=== PATIENT | female | born 1970 | race Caucasian/White ===

== ENCOUNTER 2021-07-28 11:29 | Observation (INO) ==
[2021-07-28] MEDS ORDERED: Ondansetron 4 MG/2 ML VIAL IVP PRN (11:35)
[2021-07-28 12:20] LABS: Basophils # 0.1 K/mcL (0.0-0.2); Basophils % 0.5 %; Eosinophils # 0.2 K/mcL (0.0-0.6); Eosinophils % 1.7 %; Hematocrit 42.7 % (35.3-44.9); Hemoglobin 14.4 g/dL (11.5-15.4); Immature Granulocytes % 0.3 % (0-4); Lymphocytes # 3.2 K/mcL (0.6-4.6); Lymphocytes % 27.5 %; Mean Corpuscular HGB Conc 33.7 g/dL (31.6-35.5); Mean Corpuscular Hemoglobin 30.2 pg (28.0-33.3); Mean Corpuscular Volume 89.5 fL (83.0-100.0); Mean Platelet Volume 10.5 fL (9.4-12.4); Monocytes # 0.6 K/mcL (0.0-1.3); Monocytes % 5.1 %; Neutrophils # 7.5 K/mcL (1.6-8.9); Platelet Count 191 K/mcL (140-400); Red Blood Count 4.77 M/mcL (3.82-4.97); Red Cell Distribution Width 13.9 % (11.5-14.5); Segmented Neutrophils % 64.9 %; White Blood Count 11.5 K/mcL (4.3-11.1)
[2021-07-28 12:45] LABS: Bilirubin,Indirect 0.5 mg/dL (0.0-1.0); Bilirubin,Total 0.5 mg/dL (0.3-1.0)
[2021-07-28 12:46] LABS: Alanine Aminotransferase 19 Units/L (7-52); Albumin/Globulin Ratio 1.7 (1.1-2.2); Alkaline Phosphatase 87 Units/L (34-104); Amylase 27 Units/L (29-103); Aspartate Amino Transferase 14 Units/L (13-39); BUN/Creatinine Ratio 8 (6-26); Bilirubin,Indirect 0.5 mg/dL (0.0-1.0); Bilirubin,Total 0.5 mg/dL (0.3-1.0); Blood Urea Nitrogen 6 mg/dL (6-20); Calcium 9.1 mg/dL (8.6-10.3); Carbon Dioxide 29 mEq/L (23-29); Chloride 105 mEq/L (98-107); Globulin 2.4 g/dL (2.4-3.5); Glucose 85 mg/dL (70-105); Osmolality,Calculated 285 (280-300); Potassium 3.6 mEq/L (3.5-5.1); Sodium 139 mEq/L (136-145); Total Protein 6.4 g/dL (6.4-8.9); eGFR For African Americans > 60 (> 60); eGFR For Non-African Americans > 60 (> 60)
[2021-07-28] MEDS: Ringers Solution, Lactated 1,000 ML IVC SCH ×2 (13:37→22:42)
[2021-07-28] MEDS: Pantoprazole 40 MG VIAL IVP SCH (13:37)
[2021-07-28] MEDS: cefOXitin 2,000 MG in 0.9 % Sodium Chloride 20 ML IVP SCH ×2 (13:38→22:44)
[2021-07-28] MEDS: Acetaminophen IV 1,000 MG/100 ML BAG IVPB SCH ×2 (13:48→20:15)
[2021-07-28] MEDS ORDERED: Lidocaine HCL 4 ML Topical Solution (Laryng-O-Jet Kit Sterile Pak) TP ONE (16:30)
[2021-07-28] MEDS ORDERED: Ondansetron 4 MG/2 ML VIAL ONE ×2 (16:30→17:34)
[2021-07-28] MEDS ORDERED: Lidocaine -MPF 2% 2 ML VIAL ONE (16:30)
[2021-07-28] MEDS ORDERED: *HR* Succinylcholine 200 MG/10 ML VIAL IVP ONE (16:30)
[2021-07-28] MEDS ORDERED: *HR* Rocuronium Bromide 50 MG/5 ML VIAL ONE (16:30)
[2021-07-28] MEDS ORDERED: Bupivacaine 0.5%-Epi 1:200,000 50 ML VIAL ONE (16:54)
[2021-07-28] MEDS ORDERED: Isovue-300 50ML VIAL ONE (16:58)
[2021-07-28] MEDS ORDERED: *HR* HYDROmorphone PF 0.5 MG/0.5 ML SYRINGE IVP PRN (17:00)
[2021-07-28] MEDS ORDERED: *HR* OxyCODONE Immed Rel 5 MG TABLET PO PRN (17:00)
[2021-07-28] MEDS ORDERED: Promethazine 6.25 MG in Water for inj. (sterile) 20 ML IVPB PRN (17:00)
[2021-07-28] MEDS ORDERED: *HR* Midazolam HCl 2 MG/2 ML VIAL ONE (17:10)
[2021-07-28] MEDS ORDERED: *HR* FentaNYL (PF) 100 MCG/2 ML VIAL ONE (17:10)
[2021-07-28] MEDS ORDERED: Scopolamine Patch 1.5 MG PATCH.TD72 ONE (17:24)
[2021-07-28] MEDS ORDERED: Ketorolac 30 MG/ML VIAL ONE (17:39)
[2021-07-28] MEDS ORDERED: Acetaminophen IV 1,000 MG/100 ML BAG IVPB ONE (17:39)
[2021-07-28] MEDS ORDERED: Sugammadex Sodium 200 MG/2 ML VIAL IV ONE (18:04)
[2021-07-29] MEDS: Acetaminophen IV 1,000 MG/100 ML BAG IVPB SCH ×2 (06:38)
[2021-07-29] MEDS: Ringers Solution, Lactated 1,000 ML IVC SCH (06:39)
[2021-07-29] MEDS ORDERED: cefOXitin 2,000 MG in 0.9 % Sodium Chloride 20 ML IVP SCH ×2 (07:00→15:30)
[2021-07-29] MEDS ORDERED: Ibuprofen 800 MG TABLET PO ONE (07:03)
[2021-07-29] MEDS ORDERED: Gabapentin 300 MG CAPSULE PO ONE (07:03)
[2021-07-29] MEDS ORDERED: methocarbamoL 750 MG TABLET PO ONE (07:04)
[2021-07-29 07:11] VITALS: BP 137/66; PULSE 55; TEMP 98.3; O2SAT 95
[2021-07-29] MEDS: Pantoprazole 40 MG VIAL IVP SCH (07:59)
== END 2021-07-29 11:59 | disposition home or self-care (01) ==
LOC: 3ANU
PROVIDERS: ADMIT Surgery; ATTEND Surgery